=== PATIENT | male | born 1980 | race Caucasian/White ===

== ENCOUNTER 2023-12-06 08:40 | Outpatient (CLI) | payer BC, SELFPAY ==
--- OUTSIDE RECORDS SUMMARY | 2023-12-08 11:18 | XMS_ITS | Referral Summary ---
Author Organization [place] Address [address] [place] [id number] Care Team Providers Care Human Service Technician Name Role Phone No Ref-Primary, Physician Primary Care Provider Allergies No known active allergies Medications No known medications Social History Tobacco Use Types Packs/Day Years Used Date Smoking Tobacco: Never Assessed Adolescent Education Answer Date Record ed Getting School Help Needed Not on file 11/06 Sex and Gender Information Value Date Recorded Sex Assigned at Not on file Legal Sex Male 2:47 PM MORTGAGE LOAN ASSISTANT Gender Identity Not on file Sexual Orientation Not on file Last Filed Vital Signs Vital Sign Reading Time Taken Comments Blood Pressure 141/87 03/27/2022 4:03 PM MORTGAGE LOAN ASSISTANT Pulse 95 03/27/2022 4:03 PM MORTGAGE LOAN ASSISTANT Temperature 36.6 ??C (97.9 ??F) 03/27/2022 4:03 PM CS T Respiratory Rate - - Oxygen Saturation 100% 03/27/2022 4:03 PM MORTGAGE LOAN ASSISTANT Inhaled Oxygen Concentration - - Weight - - Height - - Body Mass Index - - Plan of Treatment Not on file Insurance [facility] SAVERS Care Teams Human Service Technician Relationship Specialty Start Date End Date No Ref-Primary, Physician PCP - General 03/27/22
--- OUTSIDE RECORDS SUMMARY | 2023-12-08 11:18 | XMS_ITS | Clinical Summary ---
Author Organization [facility] Address [place], [place] [address] Care Team Providers Care Leather Softener Name Role Phone [facility], [facility] Primary Care Pr ovider Allergies Active Allergy Reactions Criticality Noted Date Comments Codemichel Hives 08/13/2021 Social History Tobacco Use Types Packs/Day Years Used Date Smoking Tobacco: Some Days Pipe Smokeless Tobacco: Never Tobacco Cessation:Ready to Q uit: No; Counseling Given: Yes Social Connections Answer Date Recorded Frequency of Communication with Friends and Fami ly Not on file 08/13/2021 Sex and Gender Information Value Date Recorded Sex Assigned at Not on file Gender Identity Not on file Sexual Orientation Not on file Obstetrics History Last Filed Vital Signs Vital Sign Reading Time Taken Comments Blood Pressure 130/85 08/13/2021 1:41 PM CDT Pulse 82 08/13/2021 1:41 PM CDT Temperature - - Respiratory Rate - - Oxygen Saturation 97% 08/13/2021 1:41 PM CDT Inhaled Oxygen Concentration - - Weight 127.6 kg (281 lb 4.8 oz) 08/13/2021 1:41 PM CDT Height - - Body Mass Index - - Plan of Treatment Health Maintenance Due Date Last Done Comments Tdap 1993 Depression screening for age 12+ 1994 HIV for age 15-65 1997 BMI (ht and wt on same day) for age 18+ 2000 Hepatitis C screening for ag e 18-79 2000 Tetanus booster 2002 Lipids for age 35-44 2017 COVID-19 vaccine series ( season) 2023 04/14/2021 Influenza for age 9-49 10/16/2023 Pneumococcal series for age 6-64 Aged Out No longer eligible based on patient's age to complete this topic Care Teams Leather Softener Relationship Specialty Start Date End Date [facility], [facility] [address] [place] [address] PCP - General 09/26/23
--- OUTSIDE RECORDS SUMMARY | 2023-12-08 11:18 | XMS_ITS | Clinical Summary ---
Author Organization [place] Address [address] [place] [id number] Care Team Providers Care Counterintelligence Specialist Name Role Phone No Ref-Primary, Physician Primary Care Provider Allergies No known active allergies Medications No known medications Social History Tobacco Use Types Packs/Day Years Used Date Smoking Tobacco: Never Assessed Adolescent Education Answer Date Record ed Getting School Help Needed Not on file 11/06 Sex and Gender Information Value Date Recorded Sex Assigned at Not on file Legal Sex Male 2:47 PM TIE IN HAND Gender Identity Not on file Sexual Orientation Not on file Last Filed Vital Signs Vital Sign Reading Time Taken Comments Blood Pressure 141/87 03/27/2022 4:03 PM TIE IN HAND Pulse 95 03/27/2022 4:03 PM TIE IN HAND Temperature 36.6 ??C (97.9 ??F) 03/27/2022 4:03 PM CS T Respiratory Rate - - Oxygen Saturation 100% 03/27/2022 4:03 PM TIE IN HAND Inhaled Oxygen Concentration - - Weight - - Height - - Body Mass Index - - Plan of Treatment Health Maintenance Due Date Last Done Comments ADVANCE CARE PLANNING 1982 ANNUAL REVIEW OF HM ORDERS 1982 GLUCOSE 1982 YEARLY PREVENTIVE VISIT 1982 HIV SCREENING 1997 HEPATITIS C SCREENING 2000 HEPATITIS B IMMUNIZATION (1 of 3 - 19+ 3-dose series) 2001 DTAP/TDAP/TD IMMUNIZATION (1 - Tdap) 05/20/2007 LIPID 2022 PHQ-2 (once per calendar year) 2023 COVID-19 Vaccine (2023-2 5 season) 2023 INFLUENZA VACCINE (#1) 2023 RSV VACCINE (1 - 1-dose 75+ series) 2057 HPV IMMUNIZATION Aged Out No longer e ligible based on patient's age to complete this topic MENINGITIS IMMUNIZATION Aged Out No l onger eligible based on patient's age to complete this topic Pneumococcal Vaccine: Pediat rics (0 to 5 Years) and At-Risk Patients (6 to 64 Years) Aged Out No longer eligi ble based on patient's age to complete this topic RSV MONOCLONAL ANTIBODY Aged Out No l onger eligible based on patient's age to complete this topic Insurance [facility] SAVERS Care Teams Counterintelligence Specialist Relationship Specialty Start Date End Date No Ref-Primary, Physician PCP - General 03/27/22
== END 2023-12-06 08:41 | disposition home or self-care (01) ==
LOC: NFLDREF 12-08 11:16
PROVIDERS: PCP Registered Nurse; Referring Provider Registered Nurse; Visit Provider Family Medicine
DX: I10 Essential (primary) hypertension (principal); E78.5 Hyperlipidemia, unspecified; Z13.9 Encounter for screening, unspecified
CPT/HCPCS: 80053; 80061

== ENCOUNTER 2023-12-14 09:02 | Outpatient (CLI) | payer BC, SELFPAY ==
--- OUTSIDE RECORDS SUMMARY | 2023-12-14 09:05 | XMS_ITS | Referral Summary ---
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 Gender Identity Not on file Sexual Orientation Not on file Last Filed Vital Signs Vital Sign Reading Time Taken Comments Blood Pressure 141/87 03/27/2022 4:03 PM MANUFACTURING TECHNICIAN Pulse 95 03/27/2022 4:03 PM MANUFACTURING TECHNICIAN Temperature 36.6 ??C (97.9 ??F) 03/27/2022 4:03 PM CS T Respiratory Rate - - Oxygen Saturation 100% 03/27/2022 4:03 PM MANUFACTURING TECHNICIAN Inhaled Oxygen Concentration - - Weight - - Height - - Body Mass Index - - Plan of Treatment Not on file Insurance [facility] [employer]ERS Care Teams Sap Functional Analyst Relationship Specialty Start Date End Date No Ref-Primary, Physician PCP - General 03/27/22
--- OUTSIDE RECORDS SUMMARY | 2023-12-14 09:05 | XMS_ITS | Clinical Summary ---
Author Organization [place] Address [address] [place] [id number] Care Team Providers Care Datapower Consultant Name Role Phone No Ref-Primary, Physician Primary Care Provider Allergies No known active allergies Medications No known medications Social History Tobacco Use Types Packs/Day Years Used Date Smoking Tobacco: Never Assessed Adolescent Education Answer Date Record ed Getting School Help Needed Not on file 11/06 Sex and Gender Information Value Date Recorded Sex Assigned at Not on file Legal Sex Male 2:47 PM ROTOR ASSEMBLER Gender Identity Not on file Sexual Orientation Not on file Last Filed Vital Signs Vital Sign Reading Time Taken Comments Blood Pressure 141/87 03/27/2022 4:03 PM ROTOR ASSEMBLER Pulse 95 03/27/2022 4:03 PM ROTOR ASSEMBLER Temperature 36.6 ??C (97.9 ??F) 03/27/2022 4:03 PM CS T Respiratory Rate - - Oxygen Saturation 100% 03/27/2022 4:03 PM ROTOR ASSEMBLER Inhaled Oxygen Concentration - - Weight - [...] patient's age to complete this topic Insurance [facility] SAVERS Care Teams Datapower Consultant Relationship Specialty Start Date End Date No Ref-Primary, Physician PCP - General 03/27/22
--- OUTSIDE RECORDS SUMMARY | 2023-12-14 09:05 | XMS_ITS | Clinical Summary ---
Author Organization [facility] Address [place], [place] [address] Care Team Providers Care Tobacco Sieve Operator Name Role Phone [facility] Primary Care Pr ovider Allergies Active Allergy Reactions Criticality Noted Date Comments Muriel Hives 08/13/2021 Social History Tobacco Use Types [...] age to complete this topic Care Teams Tobacco Sieve Operator Relationship Specialty Start Date End Date [facility] [address] [place] [address] PCP - General 09/26/23
== END 2023-12-14 09:03 | disposition home or self-care (01) ==
PROVIDERS: PCP Registered Nurse; Visit Provider Registered Nurse
DX: Z00.00 Encounter for general adult medical examination without abnormal findings (principal); I10 Essential (primary) hypertension; F41.9 Anxiety disorder, unspecified; F32.A Depression, unspecified
CPT/HCPCS: 84403; 84443